=== PATIENT | female | born 1955 | race Caucasian/White ===

== ENCOUNTER 2019-12-05 06:41 | Emergency (ER) | payer MEDICARE, OTHER ==
[2019-12-05] MEDS ORDERED: traMADol 50 MG Tab PO ONE ×2 (06:42→07:18)
[2019-12-05] MEDS ORDERED: Acetaminophen 500 MG Tab PO ONE (07:18)
[2019-12-05] MEDS ORDERED: Potassium Chloride 20 MEQ Tab.ER PO ONE (08:11)
--- NOTE | 2019-12-05 08:11 | EDM.PDOC ---
ED HPI GENERAL MEDICAL PROBLEM - General Chief Complaint: Syncope Stated Complaint: FALL-SHOULDER PAIN Time Seen by Provider: 12/05/19 07:10 Source of Information: Reports: Patient History Limitations: Reports: No Limitations - History of Present Illness INITIAL COMMENTS - FREE TEXT/NARRATIVE: Patient presented to the ED because of left shoulder pain. She fell and landed on her left shoulder because she was feeling dizzy. She c/o pain but there was no LOC after the fall. She had N/V/D foe 2 days but has now resolved. left shoulder Pain Score (Numeric/FACES): 8 - Related Data Allergies Allergy/AdvReac Type Severity Reaction Status Date / Time No Known Allergies Allergy Verified 12/05/19 06:52 Home Meds: Home Meds Aspirin [Lo-Dose Aspirin EC] 1 tab PO DAILY 12/05/19 [History] Enalapril/Hydrochlorothiazide [Enalapril-HCTZ 10-25 MG] 0.5 tab PO DAILY [History] Venlafaxine [Effexor XR] 1 tab PO DAILY 12/05/19 [History] traMADol [Ultram] 100 mg PO Q8H PRN #15 tab 12/05/19 [Rx] valACYclovir HCl [Valtrex] 1 tab PO DAILY 12/05/19 [History] Past Medical History HEENT History: Reports: Impaired Vision Cardiovascular History: Reports: Hypertension 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: Neurological History: Reports: Neuropathy, Peripheral Psychiatric History: Reports: Anxiety, Depression - Past Surgical History Female Surgical History: Reports: Hysterectomy Musculoskeletal Surgical History: Reports: Knee Replacement Social & Family History - Family History Family Medical History: Noncontributory - Tobacco Use Smoking Status *Q: Never Smoker - Caffeine Use Caffeine Use: Reports: None - Recreational Drug Use Recreational Drug Use: No ED ROS GENERAL - Review of Systems Review Of Systems: See Below Constitutional: Reports: No Symptoms HEENT: Reports: No Symptoms Respiratory: Reports: No Symptoms Cardiovascular: Reports: No Symptoms Endocrine: Reports: No Symptoms GI/Abdominal: Reports: No Symptoms : Reports: No Symptoms Musculoskeletal: Reports: Other (pain left shoulder) Skin: Reports: No Symptoms Neurological: Reports: No Symptoms Psychiatric: Reports: No Symptoms ED EXAM, UPPER BACK/NECK PAIN - Physical Exam Exam: See Below Exam Limited By: No Limitations General Appearance: Alert, No Apparent Distress Ears Exam: Normal External Exam, Normal Canal, Hearing Grossly Normal Nose Exam: Normal Inspection, Normal Mucousa, No Blood Throat/Mouth Exam: Normal Inspection, Normal Lips, Normal Teeth, Normal Gums Head Exam: Atraumatic, Normocephalic Neck Exam: Non-Tender, Full Range of Motion Cardiovascular/Respiratory: Regular Rate, Rhythm, No M/R/G, Normal Peripheral Pulses, No JVD GI/Abdominal: Normal Bowel Sounds, Soft, Non-Tender, No Organomegaly Extremities: Normal Inspection, Normal Range of Motion, Non-Tender, Other ( tender mid clavicular area) Course - Vital Signs Text/Narrative:: xray-clavicular fracture tramadol 100 mg po x1` tylenol 1000 mg po x1 zofran ODT 4 mg klor con 40 meq po x1 shoulder/arm sling was provided to the patient Last Recorded V/S: Last Vital Signs Temp 36.6 C 12/05/19 06:58 Pulse 93 12/05/19 06:58 Resp 14 12/05/19 06:58 BP 119/62 12/05/19 06:58 Pulse Ox 100 12/05/19 06:58 - Orders/Labs/Meds Orders: Active Orders 24 hr Category Date Time Status Shoulder Comp Lt [CR] Stat Exams 12/05/19 07:20 Taken Labs: Laboratory Tests 12/05/19 12/05/19 Range/Units 07:30 07:30 WBC 14.0 H (4.5-12.0) X10-3/uL RBC 4.65 (3.23-5.20) x10(6)uL Hgb 13.5 (11.5-15.5) g/dL Hct 40.2 (30.0-51.3) % MCV 86.5 (80-96) fL MCH 29.0 (27.7-33.6) pg MCHC 33.6 (32.2-35.4) g/dL RDW 12.2 (11.5-15.5) % Plt Count 332 (125-369) X10(3)uL MPV 7.8 (7.4-10.4) fL Neut % (Auto) 82.3 H (46-82) % Lymph % (Auto) 8.7 L (13-37) % [place] % (Auto) 6.5 (4-12) % Eos % (Auto) 2 (1.0-5.0) % Baso % (Auto) 0 (0-2) % Neut # (Auto) 11.6 H (1.6-8.3) # Lymph # (Auto) 1.2 (0.6-5.0) # [place] # (Auto) 0.9 (0.0-1.3) # Eos # (Auto) 0.3 (0.0-0.8) # Baso # (Auto) 0.0 (0.0-0.2) # Sodium 138 (135-145) mmol/L Potassium 3.4 L (3.5-5.3) mmol/L Chloride 99 L (100-110) mmol/L Carbon Dioxide 26 (21-32) mmol/L BUN 13 (7-18) mg/dL Creatinine 0.9 (0.55-1.02) mg/dL Est Cr Clr Drug Dosing 65.38 mL/min Estimated GFR (MDRD) > 60 (>60) BUN/Creatinine Ratio 14.4 (9-20) Glucose 104 (80-116) mg/dL Calcium 9.0 (8.6-10.2) mg/dL Meds: Medications Discontinued Medications Generic Name Dose Route Start Last Admin Trade Name Freq PRN Reason Stop Dose Admin Acetaminophen 1,000 mg 12/05/19 07:18 12/05/19 07:31 Tylenol Extra Strength PO 12/05/19 07:19 1,000 mg ONETIME ONE Administration Potassium Chloride 40 meq 12/05/19 08:11 Klor-Con M20 PO 12/05/19 08:12 ONETIME ONE Tramadol HCl 100 mg 12/05/19 07:18 12/05/19 07:31 Ultram PO 12/05/19 07:19 100 mg ONETIME ONE Administration Departure - Departure Time of Disposition: 08:00 Disposition: Home, Self-Care 01 Condition: Good Clinical Impression: Clavicular fracture, Gastroenteritis, Hypokalemia - Discharge Information Prescriptions: traMADol [Ultram] 100 mg PO Q8H PRN #15 tab PRN Reason: Pain Instructions: Viral Gastroenteritis, Adult, Clavicle Fracture, [id number], Hypokalemia Referrals: Britany Dumont NP [Primary Care Provider] - Forms: ED Department Discharge Additional Instructions: please read discharge instructions on clavicular fracture and gastroenteritis frequent hand washing increase oral fluids tramadol 100 mg with tylenol 1000 mg every 8 hours for moderate to sever pain follow up in 10 days for a repeat xray Sepsis Event Note - Evaluation Sepsis Screening Result: No Definite Risk - Focused Exam Vital Signs: Vital Signs Temp Pulse Resp BP Pulse Ox 12/05/19 06:58 36.6 C 93 14 119/62 100 Date Exam was Performed: 12/05/19 Time Exam was Performed: 08:16 - My Orders Last 24 Hours: My Active Orders 12/05/19 07:20 Shoulder Comp Lt [CR] Stat - Assessment/Plan Last 24 Hours: My Active Orders 12/05/19 07:20 Shoulder Comp Lt [CR] Stat
[2019-12-05] MEDS ORDERED: Ondansetron 4 MG Tab.DIS PO ONE ×2 (08:22→08:23)
--- NOTE | 2019-12-06 10:07 | CR ---
INDICATION: Pain after a fall. LEFT SHOULDER: Four views of the left shoulder revealed an oblique fracture with comminution through the mid to distal shaft of the clavicle with caudal offset of the distal fracture fragment of the width of the shaft, no significant angulation was noted. No other significant bone or joint abnormality was identified. IMPRESSION: Clavicular fracture with mild deformity. MTDD
== END 2019-12-05 08:50 | disposition home or self-care (01) ==
LOC: FB.ED 06:41
DX: S42.022A Displaced fracture of shaft of left clavicle, initial encounter for closed fracture (principal); E87.6 Hypokalemia; K52.9 Noninfective gastroenteritis and colitis, unspecified; I10 Essential (primary) hypertension; F41.9 Anxiety disorder, unspecified; F32.9 Major depressive disorder, single episode, unspecified; Z79.82 Long term (current) use of aspirin; Z79.899 Other long term (current) drug therapy; W19.XXXA Unspecified fall, initial encounter; Y92.009 Unspecified place in unspecified non-institutional (private) residence as the place of occurrence of the external cause
CPT/HCPCS: 36415; 73030-LT; 80048; 85025; 99283; 99284-25; A9270-GY

== ENCOUNTER 2024-04-01 03:19 | Emergency (ER) | payer MEDICARE, OTHER ==
[2024-04-01] MEDS: Cyclobenzaprine 10 MG Tab PO ONE (03:39)
[2024-04-01] MEDS: Ketorolac 30 MG/ML SDV IM ONE (03:40)
[2024-04-01] MEDS: Sodium Chloride 0.9% 1,000 ML IV SCH (04:16)
[2024-04-01 04:31] LABS: BASOPHILS ABSOLUTE AUTO 0.1 x10-3/uL (0.0-0.1); EOSINOPHILS ABSOLUTE AUTO 0.3 x10-3/uL (0.0-0.8); EOSINOPHILS PERCENT AUTO 4.1 % (0.6-8.1); HEMATOCRIT 35.5 % (34.2-48.2); HEMOGLOBIN 12.1 g/dL (11.4-15.5); LYMPHOCYTES ABSOLUTE AUTO 1.6 x10-3/uL (1.0-4.4); LYMPHOCYTES PERCENT AUTO 23.5 % (18.4-52.1); MEAN CORPUSCULAR HEMOGLOBIN 28.9 pg (23.9-33.9); MEAN CORPUSCULAR HGB CONC 34.2 g/dL (31.9-34.8); MEAN CORPUSCULAR VOLUME 84.4 fL (76.7-100.5); MEAN PLATELET VOLUME 7.7 fL (7.1-12.4); MONOCYTES ABSOLUTE AUTO 0.6 x10-3/uL (0.3-1.0); MONOCYTES PERCENT AUTO 8.4 % (4.4-15.7); NEUTROPHILS ABSOLUTE AUTO 4.3 x10-3/uL (1.5-6.3); PLATELET COUNT,PLT 272 x10(3)uL (151-488); RED CELL DISTRIBUTION WIDTH 13.6 % (12.3-16.5); WHITE BLOOD CELL COUNT,WBC 6.8 x10-3/uL (3.0-10.3)
[2024-04-01 04:33] LABS: BLOOD UREA NITROGEN,BUN 18 mg/dL (7-18); BUN/CREATININE RATIO 16.4 (9-20); CALCIUM 8.4 mg/dL (8.6-10.2); CARBON DIOXIDE,CO2 26 mmol/L (21-32); CHLORIDE,CL 104 mmol/L (100-110); CREATININE 1.1 mg/dL (0.55-1.02); EST CRCL DRUG DOSING (CG) 50.06 mL/min; ESTIMATED GFR 55 mL/min (>60); GLUCOSE RANDOM 105 mg/dL (80-116); POTASSIUM,K 3.8 mmol/L (3.5-5.3); SODIUM,NA 141 mmol/L (135-145)
[2024-04-01] MEDS: Morphine 2 MG/ML SYRINGE IVPUSH ONE (04:35)
[2024-04-01 04:45] LABS: ALANINE AMINOTRANSFERASE,ALT 34 U/L (12-36); ALBUMIN 3.5 g/dL (3.2-4.6); ALKALINE PHOSPHATASE 79 IU/L (56-112); ASPARTATE AMNIOTRANSFERASE,AST 22 IU/L (5-25); BILIRUBIN TOTAL 0.3 mg/dL (0.1-1.3); PROTEIN TOTAL,TP 7.1 g/dL (6.0-8.0)
== END 2024-04-01 06:28 | disposition home or self-care (01) ==
LOC: FB.ED 03:19
DX: B02.9 Zoster without complications (principal); I10 Essential (primary) hypertension; Z79.899 Other long term (current) drug therapy; Z90.710 Acquired absence of both cervix and uterus
CPT/HCPCS: 36415; 71046; 72128; 80053; 84484; 85025; 85379; 93005; 93010; 96361; 96372; 96374; 99283; 99285-25; A9270-GY; J1885; J2270; J7030